=== PATIENT | male | born 1965 | race Caucasian/White ===

== ENCOUNTER 2016-08-09 10:28 | Emergency (ER) | payer MEDICAID ==
--- NOTE | 2016-08-09 10:44 | ED Physician Chart ---
Chief Complaint/HPI - Patient Information Date Seen:: 08/09/16 Time Seen:: 10:38 Chief Complaint:: Fever for 4 days. History of Present Illness:: As above. Pt has had nasal congestion, runny nose, sorethroat, and sinus congestion. Pt has had occasional cough with green yellow phlegm. No dyspnea. No N/V. Last BM at about 0930 today, slightly loose but nonbloody. No mentation change. Allergies:: Beesting. Vitals:: see Nurse Note. Historian:: Patient Family MD/PCP:: Dr. Barragan LMP:: N/A Review:: Nurse's Note Reviewed Review of Systems - Review of Systems General/Constitutional: Fever, No chills, No weight loss, No weakness, No diaphoresis, No edema, Loss of appetite Skin: No skin lesions, No rash, No bruising Head: Headache (frontal sinus pressure.), No light-headedness Eyes: No loss of vision, No pain, No diplopia ENT: No earache, Nasal drainage, Sore throat Neck: No neck pain, No swelling, No thyromegaly, No stiffness, No mass noted Cardio Vascular: No chest pain, No palpitations, No PND, No orthopnea, No edema Pulmonary: No SOB, Cough, Sputum (yellow green phlegm), No wheezing GI: No nausea, No vomiting, Diarrhea (loose stool this morning, see HPI.), No pain, No melena, No hematochezia G/U: No dysuria, No frequency, No hematuria Musculoskeletal: No bone or joint pain, No back pain, No muscle pain Endocrine: No polyuria, No polydipsia Psychiatric: No prior psych history Allergic/Immuno: No urticaria, No angioedema Neurological: No syncope, No focal symptoms, No weakness, No paresthesia, Headache (frontal sinus pressure.), No seizure, No dizziness, No confusion, No vertigo Past Medical History - Past Medical History Past Medical History: HTN, DM, CAD (s/p DC 15. Coronary angioplasty ) Family History: Diabetes Melitus (mother), HTN (father) Social History: Non Smoker, No Alcohol, No Drug Use, , Other (Pt lives with his mother and his fiance.) Employment:: unemployed. Surgical History: None Psychiatricy History: None Medication: Reviewed Family Medical History - Family Member Mother History Unknown: Yes Physical Exam - Physical Examination General/Constitutional: Awake, Well-developed, well-nourished, Alert, No distress, GCS 15, Non-toxic appearing, Ambulatory Other Gen/Cons comments:: Breathes comfortably, speaks clearly, and interacts normally. Head: Atraumatic Other Head comments:: Tenderness at frontal sinus regions. Eyes: Lids, conjuctiva normal, PERRL, EOMI Skin: Nl inspection, No rash, No skin lesions, No ecchymosis, No lymphadenopathy ENMT: TM canals nl, Lips, teeth, gums nl, Oropharynx nl, Tonsils nl Other ENMT comments:: Yellow nasal exudate and light yellow postnasal drip noticed. Mucous membrane slightly dry. Neck: Nontender, Full ROM w/o pain, No JVD, No nuchal rigidity, No bruit, No mass, No stridor Respiratory: Nl effort/Exclusion, Clear to Auscultation, No Wheeze/Rhonchi/Rales Cardio Vascular: RRR, No murmur, gallop, rubs, NL S1 S2 GI: No tenderness/rebounding/guarding, No organomegaly, No hernia, Normal BS's, Nondistended, No mass/bruits, No McBurney tenderness Other GI comments:: Abdomen is soft. : No CVA tenderness Extremities: No tenderness or effusion, Full ROM, normal strength in all extremities, No edema, Normal digits & nails Neuro/Psych: Alert/oriented (oriented x 3), Judgement/insight normal, Mood normal, No focal deficits Labs/Radiology/EKG Results - Lab Results Results: Laboratory Tests 08/09/16 08/09/16 08/09/16 11:05 11:05 11:22 WBC 7.5 RBC 4.82 Hgb 14.5 Hct 42.9 MCV 89.0 MCH 30.0 MCHC Differential 33.7 RDW 12.6 Plt Count 112 L MPV 8.1 Band Neutrophils % 13 H Neutrophils (Manual) 77 Lymphocytes 7 L Monocytes 3 Platelet Estimate DECREASED PLATELETS Platelet Morphology NORMAL RBC Morph Micro Appear NORMAL Sodium 130 L Potassium 3.5 Chloride 98 Carbon Dioxide 23.6 Anion Gap 11.9 BUN 20 Creatinine 0.9 Est GFR ( Amer) > 60.0 Est GFR (Non-Af Amer) > 60.0 BUN/Creatinine Ratio 22.2 Glucose 315 H POC Glucose 305 H Hemoglobin A1c % Calcium 8.9 08/09/16 08/09/16 11:43 14:07 WBC RBC Hgb Hct MCV MCH MCHC Differential RDW Plt Count MPV Band Neutrophils % Neutrophils (Manual) Lymphocytes Monocytes Platelet Estimate Platelet Morphology RBC Morph Micro Appear Sodium Potassium Chloride Carbon Dioxide Anion Gap BUN Creatinine Est GFR ( Amer) Est GFR (Non-Af Amer) BUN/Creatinine Ratio Glucose POC Glucose 236 H Hemoglobin A1c % 10.3 H Calcium ED Septic Shock - . Is Septic Shock (SBP<90, OR Lactate>4 mmol\L) present?: No Reassessment (Disposition) - Reassessment Reassessment:: 1300 Pt has been repeatedly evaluated. Pt overall feels much better after IV hydration. Will continue IV hydration and repeat Accuchek. 1430 Pt feels much better. Fever has subsided. Repeat Accuchek is 236. Pt has been ambulatory without difficulty. No N/V/D. No lightheadedness. Lab findings have been reviewed with pt. Pt requests to go home now and does not want further observation/management in hospital. Aftercare instructions have been given. His fiance will drive him home. Reassessment Condition:: Improved - Diagnosis Diagnosis:: Feverish illness due to acute sinusitis, stable. Diabetes mellitus, stable. Repeat Accuchek is 236. - Aftercare/Follow up Instructions Aftercare/Follow-Up Instructions:: Refer to Discharge Instructions Notes:: Increase oral fluid. Fever instructions given. May take Motrin and/or Tylenol as directed prn for fever or pain. Continue present care and monitoring glucose at home. F/U with PCP Dr. Barragan in one day for recheck. Return to ER immediately if condition worsens or if any further questions/problems. Medication Prescribed:: Bactrim DS one tab po q12h for 14 days. D-28 R-0 - Patient Disposition Discharge/Transfer:: Home Time:: 14:40 Condition at Disposition:: Stable, Improved ED Discharge Plan - Patient Disposition Accepting Physician: Junaid Barragan [Other] - 1-3 Days
[2016-08-09] MEDS ORDERED: Sulfamethoxazole/TMP 800/160mg Tab PO ONE (11:02)
[2016-08-09] MEDS ORDERED: Sodium Chloride 0.9% 1,000 ML IV ONE (11:04)
[2016-08-09] MEDS ORDERED: Sulfamethoxazole/TMP 800/160mg Tab ONE (11:06)
[2016-08-09 11:15] LABS: RED CELL DISTRIBUTION WIDTH 12.6 % (11.5-20.0); WHITE BLOOD COUNT 7.5 Th/cmm (4.8-10.8)
[2016-08-09 11:21] LABS: HEMATOCRIT 42.9 % (39.0-49.0); HEMOGLOBIN 14.5 gm/dL (13.2-17.3); MEAN CORPUSCULAR HGB CONC 33.7 pg (28.0-36.0); MEAN PLATELET VOLUME 8.1 fl; PLATELET COUNT 112 Th/cmm (150-400); RED BLOOD COUNT 4.82 Mil/cmm (4.30-5.70)
[2016-08-09 11:30] LABS: ANION GAP 11.9 (7.0-16.0); BUN - UREA NITROGEN 20 mg/dL (7-25); BUN/CREATININE RATIO 22.2; CALCIUM SERUM 8.9 mg/dL (8.6-10.3); CARBON DIOXIDE 23.6 mEq/L (21.0-31.0); CHLORIDE 98 mEq/L (98-107); CREATININE - SERUM 0.9 mg/dL (0.7-1.3); GLUCOSE 315 mg/dL (70-105); POTASSIUM SERUM 3.5 mEq/L (3.5-5.1); SODIUM SERUM 130 mEq/L (136-145)
[2016-08-09 11:43] LABS: BAND NEUTROPHILE 13 % (0-10); NEUTROPHILS 77 % (40-80); PLATELET ESTIMATE DECREASED PLATELETS (NORMAL); PLATELET MORPHOLOGY NORMAL (NORMAL); TOTAL CELLS COUNTED 100
== END 2016-08-09 14:50 | disposition home or self-care (01) ==
LOC: ER 10:28
DX: J01.90 Acute sinusitis, unspecified (principal); F50.9 Eating disorder, unspecified; E11.9 Type 2 diabetes mellitus without complications; I10 Essential (primary) hypertension; I25.10 Atherosclerotic heart disease of native coronary artery without angina pectoris
CPT/HCPCS: 36415-UA; 80048-TC; 82948-90; 83036-90; 85007-TC; 85027-TC; J7030; Z7610